=== PATIENT | male | born 2005 | race Caucasian/White ===

== ENCOUNTER 2025-03-10 19:44 | Emergency (ER) | payer BC, SELFPAY ==
[2025-03-10 19:54] VITALS: BP 127/66; PULSE 74; RESP 18; TEMP 36.9; O2SAT 98; BMI 23.7
--- NOTE | 2025-03-10 19:55 | CRLHL7_ITS ---
For Patients: As a result of the Cures Act, medical imaging exams and procedure reports are released immediately into your electronic medical record. You may view this report before your referring provider. If you have questions, please contact your health care provider. INDICATION: Swelling mid foot, cleat contact injury in soccer, cleat contact in sport injury TECHNIQUE: Foot radiograph 3 views right COMPARISON: None FINDINGS: Bone: No acute fractures or aggressive bone lesions are identified. Joint: The visualized hindfoot, midfoot, and forefoot joints are unremarkable in appearance. No significant ankle effusion is seen. Soft tissue: Mild soft tissue swelling seen over the dorsal midfoot. No radiopaque foreign bodies are seen. IMPRESSION: 1. No acute osseous injuries are noted. Dictated by Anil Quinteros MD @ 03/10/2025 8:58:34 PM Dictated by: Anil Quinteros MD @ 03/10/2025 20:58:40 (Electronically Signed)
--- NOTE | 2025-03-10 20:11 | ED.GENADULT ---
HPI - General Adult General Chief complaint: Extremity Pain/Injury, Lower Stated complaint: Needs xrays on R foot, injury Time Seen by Provider: 03/10/25 20:10 History of Present Illness HPI narrative: Patient was playing soccer and another player's cleat contacted his right foot. Has swelling on top of foot with small open abrasion. 19 year old presenting to the ER after an injury to his right foot. With trying a volley of some sort while playing soccer and the top of his right foot struck the underside of another player's cleat. He does not believe that it is cut to the point of needing suturing but it has swelled remarkably add is rather painful. He is able to ambulate. Does admit that has trouble with ankles is working at physical therapy it sounds like. That does not appear to be related here today. Related Data Home Medications ?Medication ?Instructions ?Recorded ?Confirmed No Known Home Medications 03/10/25 03/10/25 Allergies Allergy/AdvReac Type Severity Reaction Status Date / Time No Known Drug Allergies Allergy Verified 03/10/25 19:53 Review of Systems Status of ROS: Reports: 6 or more systems reviewed and unremarkable except as noted in History and below PFSH PFS Social History Smoking Status: Never smoker Do you use any of these nicotine containing products: None How often do you have a drink containing alcohol: never AUDIT-C Alcohol total score: 0 Non-prescribed substance use: denies use Exam Narrative: Exam Narrative: Pleasant. NAD. Tall. Is wearing soccer slides. Examining the right foot in question there is a racquet ball sized area in diameter soft and painful swelling over the dorsum the foot. There is cm and a half area of abrasion horizontally and little proximally is slightly deeper but does appear to have sealed off. Area of maximal tenderness and the point of impact I think is over the 3rd and 4th metatarsal distal to the metatarsal bases. There is no plantar bruising nor pain to manipulation of the plantar surface. No injury apparent to the ankle. No pain to palpation over the navicular or base of metatarsal. Const: Vital Signs, click to edit/add: Vital Signs - 24 hr 03/10/25 19:54 Temperature 98.4 F Pulse Rate [Pulse Oximeter] 74 Respiratory Rate 18 Blood Pressure [Ri ght Upper Arm] 127/66 Pulse Oximetry 98 Oxygen Delivery Me thod Room Air Documenting provider has reviewed patient's vital signs: yes Course Vital Signs Vital signs: Initial Vital Signs Temperature 98.4 F 03/10/25 19:54 Temperature Source Temporal Artery Scan 03/10/25 19:54 Pulse Rate 74 03/10/25 19:54 Respiratory Rate 18 03/10/25 19:54 Blood Pressure 127/66 03/10/25 19:54 Blood Pressure Mean 86 03/10/25 19:54 Pulse Oximetry 98 03/10/25 19:54 Oxygen Delivery Method Room Air 03/10/25 19:54 Vital Signs Temperature 98.4 F 03/10/25 19:54 Pulse Rate 74 03/10/25 19:54 Respiratory Rate 18 03/10/25 19:54 Blood Pressure 127/66 03/10/25 19:54 Pulse Oximetry 98 03/10/25 19:54 Oxygen Delivery Method Room Air 03/10/25 19:54 Temperature 98.4 F 03/10/25 19:54 Pulse Rate 74 03/10/25 19:54 Respiratory Rate 18 03/10/25 19:54 Blood Pressure 127/66 03/10/25 19:54 Pulse Oximetry 98 03/10/25 19:54 Oxygen Delivery Method Room Air 03/10/25 19:54 Medical Decision Making MDM Narrative Medical decision making narrative: I think this is more likely a bruising/hematoma. Images had already been ordered. I think that is appropriate particularly given level of activity. There certainly might be a fracture here. Possible midfoot sprain but I think also unlikely. I do independently review three view x-rays the right foot. Cannot appreciate bony abnormality. Alignment appears normal. Soft tissue swelling appreciated. Bacitracin ointment and Band-Aid applied. See patient discharge plan for further discussion As long as your primary pain is contact on the top of the foot, I think this is likely just a bruise/hematoma. If you begin to have more pain deeper in your foot with walking it might mean that there was more of a sprain here or we have missed a fracture. If you do not seem to be improving in 7-10 days, would be re-evaluated. Do your best to avoid impact in this area again over the next couple of weeks. I would ice your foot 2-3 times daily over the next few days and then any time that it might be sore. Antibiotic ointment and a Band-Aid over the next 3 days and then can go to a dry dressing. Ibuprofen, acetaminophen, elevation for comfort. As far as your ankles go, yes, continue to do your homework :) If needed you might be able to find some hinged ankle braces like the eclipse I or eclipse II by [employer] probably now just on [employer]. Can offer a lot of security and mobility at the same time. Another option by [employer] is the T2 -- a little thicker but easier to find. [employer] hinged braces fit under the insole for a little more security. There is also an interesting brace by [employer] ([employer] POD) that feels like a tape job. Makes it hard to roll the ankle but limits a little bit the extension of the ankle. Fits a little better into a shoe. They also have hinged offering. Radiology has not seen your images yet. Will call you if they notice something unusual/a fracture. Good luck. Discharge Plan Discharge Clinical Impression: Contusion, Abrasion Patient Disposition: Home, Self-Care Condition: Stable Additional Instructions: As long as your primary pain is contact on the top of the foot, I think this is likely just a bruise/hematoma. If you begin to have more pain deeper in your foot with walking it might mean that there was more of a sprain here or we have missed a fracture. If you do not seem to be improving in 7-10 days, would be re-evaluated. Do your best to avoid impact in this area again over the next couple of weeks. I would ice your foot 2-3 times daily over the next few days and then any time that it might be sore. Antibiotic ointment and a Band-Aid over the next 3 days and then can go to a dry dressing. Ibuprofen, acetaminophen, elevation for comfort. As far as your ankles go, yes, continue to do your homework :) If needed you might be able to find some hinged ankle braces like the eclipse I or eclipse II by [employer] probably now just on [employer]. Can offer a lot of security and mobility at the same time. Another option by [employer] is the T2 -- a little thicker but easier to find. [employer] hinged braces fit under the insole for a little more security. There is also an interesting brace by [employer]ja ([employer]Joy POD) that feels like a tape job. Makes it hard to roll the ankle but limits a little bit the extension of the ankle. Fits a little better into a shoe. They also have hinged offering. Radiology has not seen your images yet. Will call you if they notice something unusual/a fracture. Good luck. Prescriptions: No Action No Known Home Medications Follow Up/Referrals: Provider,Not a Local [Primary Care Provider, Family Practice] Stand Alone Forms: MyHealth Info Instructions
--- OUTSIDE RECORDS SUMMARY | 2025-03-10 20:34 | XMS_ITS | Clinical Summary ---
Author Organization [facility] Address [address] [place] [address], [place] [address] Phone Care Team Providers Care Rn Oncology Clinical Name Role Phone No Pcp, General Primary Care Provider Unavailabl e Allergies No known active allergies Medications No known medications Active Problems No known active problems Social History Tobacco Use Types Packs/Day Years Used Date Smoking Tobacco: Never Smokeless Tobacco: Never Tobacco Cessation:Counseling Given: No Alcohol Use Standard Drinks/Week Comments Never 0 (1 standard drink = 0.6 oz pur e alcohol) Sex and Gender Information Value Date Recorded Sex Assigned at Not on file Legal Sex Male 7:28 PM CDT Gender Identity Not on file Sexual Orientation Not on file Last Filed Vital Signs Vital Sign Reading Time Taken Comments Blood Pressure - - Pulse - - Temperature - - Respiratory Rate - - Oxygen Saturation - - Inhaled Oxygen Concentration - - Weight 54.4 kg (120 lb) 03/01/2021 5:51 PM CDT Height 167.6 cm (5' 6) 03/01/2021 5:51 PM CDT Body Mass Index 19.37 03/01/2021 5:51 PM CDT Body Mass Index Percentile 37.19% 03/01/2021 5:5 1 PM CDT Growth Chart: [facility] (Boys, 2-2 0 Years) Plan of Treatment Health Maintenance Due Date Last Done Comments Influenza Vaccine (#1) 2025 Insurance [facility] Care Teams Rn Oncology Clinical Relationship Specialty Start Date End Date No Pcp, General [address] [place] [address] PCP - General 03/23/21
--- OUTSIDE RECORDS SUMMARY | 2025-03-10 20:35 | XMS_ITS | Clinical Summary ---
Author Organization [facility] Address [address] [place] [address] Care Team Providers Care Lace And Textiles Restorer Name Role Phone Physician, Not [facility] Primary Care Provider Unavailable Allergies No known active allergies Medications No known medications Active Problems No known active problems Immunizations Immunization Administration Dates Next Due DTaP 04/11/2011, 7,02/20/2006,01/02,2005 HPV9 (Gardasil9) 09/28/2018,09/18/2017 Hep A Ped/adol 2 Dose Rose 09/18/2014,09/19/2013 Hep A, Unspecified Formulation 09/18/2014,2013 Hep B Peds/adol, 3 Dose Rose 09/19/2013, 9,10/13/2008 Hepatitis B, Unspecified 09/19/2013 MMR 04/11/2011,01/21/2008 Meningococcal Mcv4p (Menactra) 09/30/2022,2016 Pfizer (12+) FULL dose, COVID-19,mrna,lnp-s,pf,30mcg/0.3ml 07/07/2021,11/14/2020,10/24/2020 Polio 04/11/2011, 6,01/02/2006,11/07 Tdap (Boostrix) 09/15/2016 Varicella 04/11/2011,10/13/2008 Social History Tobacco Use Types Packs/Day Years Used Date Smoking Tobacco: Never Passive Smoke Exposure: Never Smokeless Tobacco: Never Alcohol Use Standard Drinks/Week Comments Never 0 (1 standard drink = 0.6 oz pur e alcohol) Sex and Gender Information Value Date Recorded Sex Assigned at Not on file Legal Sex Male 10:04 AM POP SINGER Gender Identity Not on file Sexual Orientation Not on file Last Filed Vital Signs Vital Sign Reading Time Taken Comments Blood Pressure 110/66 05/23/2023 11:48 AM POP SINGER Pulse 66 05/23/2023 11:48 AM POP SINGER Temperature 36.8 C (98.2 F) 05/23/2023 11:48 AM POP SINGER Respiratory Rate - - Oxygen Saturation 99% 05/23/2023 11: 48 AM POP SINGER Inhaled Oxygen Concentration - - Weight 56.9 kg (125 lb 6.4 oz) 05/23/20 11:48 AM POP SINGER Height 177 cm (5' 9.69) 05/23/2023 11: 48 AM POP SINGER Body Mass Index 18.16 05/23/2023 11:48 AM POP SINGER Body Mass Index Percentile 5.40% 05/23 11:48 AM POP SINGER Growth Chart: CDC (Boys, 2-2 0 Years) Plan of Treatment Health Maintenance Due Date Last Done Comments Depression Screening 2017 Physical 08/19/2023 COVID-19 Vaccine ( season) 2025 07/07/2021, 11/14/2020, 10/24/2020 FLU VACCINE (#1) 02/09/2025 DTaP/Tdap/Td Vaccines (7 - Td or Tdap) 09/15/2026 09/15/2016, 04/11/2011, 11/27/2006, Additional history exists HPV VACCINE Completed 09/28/2018, 09/18/2017 Pneumococcal: Pediatric/ High Risk Adult 18-64 Aged Out No longer eligible based on patient's age to complete this topic Insurance [employer] * Guarantor: ISABEL HALL Account Type Relation to Patient Date of Phone Billing Address [employer] [address] [address] Care Teams Lace And Textiles Restorer Relationship Specialty Start Date End Date Physician, Cullen [facility] PCP - General 09/22/12
--- OUTSIDE RECORDS SUMMARY | 2025-03-10 20:35 | XMS_ITS | Clinical Summary ---
Author Organization [facility] Address [address] [place] [address] Care Team Providers Care Ragman Name Role Phone Unavailable Primary Care Provider Unavailabl e Source Comments In the event that this is information that is protected by federal Confidentiality of Substance UseDisorder Patient Records, 42 CFR Part 2 prohibits the unauthorized disclosure of these records.[facility] Allergies No known active allergies Social History Tobacco Use Types Packs/Day Years Used Date Smoking Tobacco: Unknown Sex and Gender Information Value Date Recorded Sex Assigned at Not on file Legal Sex Male 6:50 PM CDT Gender Identity Not on file Sexual Orientation Not on file Last Filed Vital Signs Vital Sign Reading Time Taken Comments Blood Pressure - - Pulse 86 07/18/2016 4:09 PM LEAD SHAREPOINT DEVELOPER Temperature 36.9 C (98.4 F) 07/18/2016 4:09 PM LEAD SHAREPOINT DEVELOPER Respiratory Rate 24 07/18/2016 4:09 PM LEAD SHAREPOINT DEVELOPER Oxygen Saturation 97% 07/18/2016 4:09 PM LEAD SHAREPOINT DEVELOPER Inhaled Oxygen Concentration - - Weight 32.2 kg (71 lb) 07/18/2016 4:09 PM LEAD SHAREPOINT DEVELOPER Height 52.1 cm (1' 8.5) 2005 10:00 PM LEAD SHAREPOINT DEVELOPER Body Mass Index - - Plan of Treatment Upcoming Encounters Date Type Department Care Team (Late st Contact Info) Description 11/23/2025 10:00 AM CDT Office Visit [facility] [address] [place] [address] Marika Hein MD [address] [facility] [address] [place] [address] new patient exam Health Maintenance Due Date Last Done Comments HIV SCREENING 2020 MENINGOCOCCAL B (MENB) (1 of 2 - Standard) 2021 HEPATITIS C SCREENING 08/19/2023 LIPID TESTING 08/19/2023 COVID-19 VACCINE ( season) 2025 07/07/2021, 11/15/2020, 10/25/2020 INFLUENZA (#1) 2025 DTAP/TDAP/TD (7 - Td or Tdap) 09/15/2026 09/15/2016, 04/11/2011, 11/27/2006, Additional history exists HPV Completed 09/28/2018, 09/18/2017 MENINGOCOCCAL CONJUGATE (MCV4) Completed 09/30/2022, 09/15/2016 Pneumococcal 0-49 Aged Out No longer eligible based on patient's age to complete this topic Insurance [facility] CHO[facility] PREFERRED
== END 2025-03-10 21:19 | disposition home or self-care (01) ==
PROVIDERS: Emergency Provider Family Medicine
DX: S90.31XA Contusion of right foot, initial encounter (principal); W21.31XA Struck by shoe cleats, initial encounter; Y93.66 Activity, soccer
CPT/HCPCS: 73630; 99283; 99284